=== PATIENT | male | born 1965 | race Caucasian/White ===

== ENCOUNTER 2022-12-11 07:40 | Day surgery (SDC) | payer OTHER ==
[~2022-12-11] VITALS: Ht 180.3 cm; Wt 124.3 kg
[~2022-12-11 07:40] MED LIST: ELIQUIS5 MG PO; HYDROCHLOROT25 MG PO; LOVENOX30 MG/0.3 SC; PROTONIX40 M2 PO; TAMSULOSIN HCL0.4 MG PO
[2022-12-11 10:40] VITALS: BP 136/68
== END 2022-12-11 11:10 | disposition designated cancer center or children's hospital (05) | DRG 418 ==
LOC: ENDO 07:40 → ORM 08:00 → ENDO 11:10
PROVIDERS: ATTEND Surgery
PROC: 0FT44ZZ Resection of Gallbladder, Percutaneous Endoscopic Approach (ICD-10-PCS; principal; 2022-12-11)
DX: K80.10 Calculus of gallbladder with chronic cholecystitis without obstruction (principal); D68.62 Lupus anticoagulant syndrome; K44.9 Diaphragmatic hernia without obstruction or gangrene; Z79.01 Long term (current) use of anticoagulants; Z86.711 Personal history of pulmonary embolism
CPT/HCPCS: J0131; J1610; Q9966